=== PATIENT | male | born 1985 | race Caucasian/White ===

== ENCOUNTER 2018-09-24 07:48 | Emergency (ER) | payer SELFPAY ==
[~2018-09-24] VITALS: Ht 175.3 cm; Wt 110.0 kg
[2018-09-24 07:50] VITALS: BP 148/103
[2018-09-24] MEDS ORDERED: BACITRACIN ZINC OINT UDPKT TOP ONE (09:45)
[2018-09-24] MEDS ORDERED: TETANUS, DIPHTHERIA, PERTUSSIS VAC/PF 0.5ML (>7YR OLD) IM ONE (09:45)
== END 2018-09-24 12:33 | disposition home or self-care (01) ==
LOC: ER 08:27
DX: S91.114A Laceration without foreign body of right lesser toe(s) without damage to nail, initial encounter (principal); W22.8XXA Striking against or struck by other objects, initial encounter; Y93.89 Activity, other specified; Y92.89 Other specified places as the place of occurrence of the external cause; Y99.8 Other external cause status
CPT/HCPCS: 12001; 73620; 90471; 90715; 99283